=== PATIENT | male | born 1955 | race Caucasian/White ===

== ENCOUNTER 2019-08-04 17:48 | Observation (INO) | payer OTHER ==
[~2019-08-04 17:48] MED LIST: Iopamidol-370 76% 500 ML 1 ML ONE
[2019-08-04] MEDS ORDERED: Ondansetron PF 4 MG/2 ML Vial ONE (18:11)
[2019-08-04] MEDS ORDERED: Morphine 4 MG/ML VIAL ONE ×2 (18:11→19:18)
[2019-08-04 18:34] LABS: #Lymphocytes 0.8 thou/uL (1.20-3.40); #Monocytes 0.5 thou/uL (0.11-0.59); #Neutrophils 5.6 thou/uL (1.40-6.50); %Basophils 0.1 % (0.0-1.0); %Eosinophils 0.5 % (0.0-10.0); %Lymphocytes 11.4 % (21.0-51.0); %Monocytes 7.5 % (0.0-10.0); %Neutrophils 80.4 % (42.0-75.0); Hemoglobin 14.7 g/dL (14.0-18.0); Mean Corpuscular HGB CONC 33.5 g/dL (32.0-36.0); Mean Corpuscular Hemoglobin 32.1 pg (27.0-31.0); Mean Corpuscular Volume 95.6 fL (78.0-98.0); Mean Platelet Volume 6.1 fL (7.4-10.4); Platelet Count 234 thou/uL (130-400); RBC Distribution Width 11.7 % (11.5-14.5); Red Blood Cell (RBC) Count 4.59 mill/uL (4.70-6.10)
[2019-08-04 18:56] LABS: ALT (SGPT) 18 U/L (8-55); AST (SGOT) 17 U/L (5-34); Alkaline Phosphatase 85 U/L (40-110); Anion Gap 17 mmol/L (10-20); BUN (Urea Nitrogen) 14 mg/dL (8.4-25.7); Bilirubin, Total 1.8 mg/dL (0.2-1.2); Calc. Creatinine Clearance 0 mL/min (70-130); Calcium 8.9 mg/dL (7.8-10.44); Carbon Dioxide 20 mmol/L (23-31); Chloride 104 mmol/L (98-107); Estimated GFR-MDRD 70; Globulin 3.1 g/dL (2.4-3.5); Glucose 151 mg/dL (80-115); Lipase 7 U/L (8-78); Potassium 4.1 mmol/L (3.5-5.1); Protein, Total 7.1 g/dL (5.8-8.1); Sodium 137 mmol/L (136-145)
--- NOTE | 2019-08-04 19:11 | RAD ---
CHEST ONE VIEW: 08/04/19 HISTORY: Epigastric pain. COMPARISON: None. FINDINGS: Lungs are hypoinflated with vascular crowding and scattered atelectasis. Heart size is enlarged. No p neumothorax. No effusion. IMPRESSION: Cardiomegaly and poor lung inspiratory effort. POS: HOME
--- NOTE | 2019-08-04 19:16 | ULT ---
Right upper quadrant ultrasound: 08/04/2019 COMPARISON: None HISTORY: Epigastric pain TECHNIQUE: Multiplanar grayscale sonographic imaging of the right upper quadrant obtained. FINDINGS: Pancreas is poorly assessed secondary to body habitus and bowel gas. Evaluation of the hepa tic parenchyma is limited as well, grossly unremarkable. The gallbladder wall is thickened, measuring approximately 4 mm. Right kidney measures 14 cm in crani ocaudal dimension and demonstrates no stone, hydronephrosis, or mass lesion. The common bile duct measures 1-2 mm, within normal limits. Small echogenic foci within the gallbladder suggest stones in the region of the gallbladder neck. The high school computer science teacher reports that the patient was medicated prior to the examination and thus, the sonographic Giron's sign could not be adequately assessed. IMPRESSION: Thickened gallbladder wall with stones within the region of the gallbladder neck suspicio us for acute cholecystitis in the proper clinical setting. If further imaging assessment is clinically warranted, hepatobiliary scan may be beneficial.
[2019-08-04] MEDS ORDERED: Piperacillin/Tazobactam 4.5 GM VIAL ONE (19:18)
--- NOTE | 2019-08-04 20:20 | CT ---
CT of the abdomen and pelvis: 08/04/2019 COMPARISON: None HISTORY: Epigastric pain, evidence of acute cholecystitis noted on recent right upper quadrant ultras ound TECHNIQUE: Axial CT imaging obtained at 5 mm intervals from the lung bases through the pubic symphysi s with IV contrast. Coronal and sagittal reformatted imaging obtained. FINDINGS: The visualized lung bases are unremarkable. No free intraperitoneal air. The liver, spleen, and pancreas demonstrate no acute findings. There is trace perihepatic and perispl enic free fluid. There is gallbladder wall thickening and pericholecystic fluid/stranding, evidence of acute cholecystitis. Tiny bilateral renal hypodensities are noted. There is a fat-containing left inguinal hernia. Limited assessment of the bowel without oral contrast media demonstrates no evidence for inflammatory change or obstruction. The appendix appears unremarkable. There is diastasis of the anterior abdominal wall musculature. There is a small fat-containing umbilical hernia. The vascular structures appear patent. There is a circumaortic left renal vein. No abdominal or pelvi c lymphadenopathy is noted. There appears to be an old fracture of the left iliac wing. No acute osseous abnormality noted. Multi level lower lumbar spine facet hypertrophy. IMPRESSION: Evidence of acute cholecystitis. Additional findings as detailed above.
[2019-08-04] MEDS ORDERED: Morphine 2 MG/ML SYRINGE ONE (21:28)
[2019-08-04 21:31] LABS: Lactic Acid 1.5 mmol/L (0.5-2.2)
[2019-08-04] MEDS ORDERED: Morphine 2 MG/ML SYRINGE SLOW IVP PRN (23:48)
[2019-08-05 00:05] VITALS: BMI 33.1
[2019-08-05] MEDS: Sodium Chloride 0.9% 1,000 ML IV SCH ×3 (00:21→21:09)
[2019-08-05] MEDS: Acetaminophen 1,000 MG in Premix Bag 1 BAG IVPB PRN ×2 (00:21→05:51)
[2019-08-05] MEDS: Piperacillin/Tazobactam 3.375 GM in Sodium Chloride 0.9% 100 ML IVPB SCH ×3 (02:41→21:02)
[2019-08-05] MEDS ORDERED: Bupivacaine 0.25% HCL 30 ML VIAL ONE (10:16)
[2019-08-05] MEDS ORDERED: Bacitracin Zinc Ointment 30 gm TUBE ONE (10:16)
--- NOTE | 2019-08-05 10:21 | HP ---
CHIEF COMPLAINT: Upper abdominal pain. HISTORY OF PRESENT ILLNESS: This is a 63-year-old male, who presented last night with severe epigastric pain, described as sharp at 8/10, associated with nausea and vomiting. No change in stools. He has never had this pain before. He specifically denies history of gallstones, jaundice, or pancreatitis. Ultrasound revealed gallstones. Due to the significance of his epigastric pain, he had CT scan, which revealed cholecystitis as well. PAST MEDICAL HISTORY: Includes; 1. Hypertension. 2. GERD. PAST SURGICAL HISTORY: He denies. MEDICATIONS: Medicines taken daily include; 1. Aspirin. 2. Ramipril. 3. Omeprazole. 4. Meloxicam. ALLERGIES: NO KNOWN DRUG ALLERGIES. SOCIAL HISTORY: No smoking, alcohol, or other drugs. REVIEW OF SYSTEMS: Ten-system review of systems is otherwise negative unless described above. PHYSICAL EXAMINATION: VITAL SIGNS: Blood pressure 105/70, pulse 74, respirations 16. He is afebrile. HEENT: Sclerae anicteric. Oropharynx clear. NECK: No lymphadenopathy. CHEST: Clear. HEART: Regular rate and rhythm. ABDOMEN: Soft, tender in the right upper abdomen and epigastric area with localized guarding without rebound. No abdominal or inguinal hernias. EXTREMITIES: No ischemia or edema to extremities. LABORATORY DATA: White blood cell count is 7, hemoglobin 14, platelets are 234. Sodium 137, potassium 4.1, creatinine 1.07, bilirubin is 1.8. LFTs otherwise normal. Lipase normal. DIAGNOSTIC DATA: Ultrasound and CT scan as above showing cholecystitis, normal common bile duct. ASSESSMENT: 1. Acute cholecystitis. 2. Hypertension. PLAN: Laparoscopic cholecystectomy with intraoperative cholangiogram. Risks, benefits, and alternatives were discussed. He gives consent. We will do this today. Job ID: [id number]
[2019-08-05] MEDS ORDERED: Ondansetron PF 4 MG/2 ML Vial ONE (10:26)
[2019-08-05] MEDS ORDERED: PROPOFOL 200 MG/20 ML VIAL ONE (10:26)
[2019-08-05] MEDS ORDERED: Lidocaine 1% PF 5 ML VIAL ONE (10:26)
[2019-08-05] MEDS ORDERED: Dexamethasone 20 MG/5 ML VIAL ONE (10:26)
[2019-08-05] MEDS ORDERED: Rocuronium Bromide 10 MG/ML (10ML VIAL) ONE (10:26)
[2019-08-05] MEDS ORDERED: ePHEDrine/0.9% NaCl/PF SYRINGE 50 mg/10 ml ONE (10:26)
[2019-08-05] MEDS ORDERED: Fentanyl 100 MCG/2 ML VIAL ONE (13:04)
[2019-08-05] MEDS ORDERED: Iothalamate Meglumine 60% 50 ML VIAL FS ONE (13:09)
[2019-08-05] MEDS ORDERED: Bupivacaine PF 0.5% 30 ML VIAL ONE (13:09)
[2019-08-05] MEDS ORDERED: Sodium Chloride 0.9% 100 ML ONE (13:49)
[2019-08-05] MEDS ORDERED: Piperacillin/Tazobactam 3.375 GM VIAL ONE (13:49)
[2019-08-05] MEDS ORDERED: Promethazine HCl 25 MG/ML VIAL SLOW IVP PRN ×2 (14:33→15:15)
[2019-08-05] MEDS ORDERED: Ondansetron HCl/PF 4 MG/2 ML Vial IVP PRN ×2 (14:33→15:15)
[2019-08-05] MEDS ORDERED: Promethazine HCl 25 MG/ML VIAL IM PRN ×3 (14:33→20:39)
--- NOTE | 2019-08-05 15:00 | RAD ---
XR Cholangiogram in Surgery History: Abdominal pain. Comparison: CT examination prior day Findings: Intraoperative angiogram was performed with cannulation of the cystic duct. No choledocholi thiasis is appreciated. Impression: No evidence for choledocholithiasis.
[2019-08-05] MEDS ORDERED: hydrALAZINE 20 MG/ML VIAL SLOW IVP PRN (20:39)
[2019-08-05] MEDS ORDERED: Dextrose 5% in Water 1,000 ML IV PRN (20:39)
[2019-08-05] MEDS ORDERED: Ondansetron PF 4 MG/2 ML Vial IVP PRN (20:39)
[2019-08-05] MEDS ORDERED: Morphine 4 MG/ML VIAL SLOW IVP PRN (20:39)
[2019-08-05] MEDS ORDERED: Calcium Carbonate 500 MG ChewTAB PO PRN (20:39)
[2019-08-05] MEDS ORDERED: Morphine 2 MG/ML SYRINGE SLOW IVP PRN (20:39)
[2019-08-05] MEDS ORDERED: Dextrose 50% Abboject 50 ML SYRINGE SLOW IVP PRN (20:39)
[2019-08-05] MEDS ORDERED: Mag-Al 1200 mg/1200 mg/30 ML UDCUP PO PRN (20:39)
[2019-08-05] MEDS ORDERED: HYDROcodone/Acetaminophen 7.5/325 mg Tablet PO PRN ×2 (20:39)
[2019-08-05] MEDS: Famotidine 20 MG TAB PO SCH (21:02)
[2019-08-05] MEDS: Famotidine/PF 20 mg/2ml Vial SLOW IVP SCH (21:02)
[2019-08-06] MEDS: Sodium Chloride 0.9% 1,000 ML IV SCH ×2 (01:20→13:00)
[2019-08-06] MEDS: Piperacillin/Tazobactam 3.375 GM in Sodium Chloride 0.9% 100 ML IVPB SCH ×2 (03:11→08:04)
[2019-08-06 06:42] LABS: #Lymphocytes 0.7 thou/uL (1.20-3.40); #Monocytes 0.5 thou/uL (0.11-0.59); #Neutrophils 6.1 thou/uL (1.40-6.50); %Basophils 0.2 % (0.0-1.0); %Eosinophils 0.1 % (0.0-10.0); %Lymphocytes 9.2 % (21.0-51.0); %Monocytes 7.3 % (0.0-10.0); %Neutrophils 83.1 % (42.0-75.0); Hemoglobin 11.8 g/dL (14.0-18.0); Mean Corpuscular Hemoglobin 32.3 pg (27.0-31.0); Mean Corpuscular Volume 95.2 fL (78.0-98.0); Mean Platelet Volume 6.2 fL (7.4-10.4); Platelet Count 206 thou/uL (130-400); RBC Distribution Width 11.6 % (11.5-14.5); Red Blood Cell (RBC) Count 3.64 mill/uL (4.70-6.10); White Blood Cell (WBC) Count 7.3 thou/uL (4.8-10.8)
[2019-08-06 07:09] LABS: ALT (SGPT) 23 U/L (8-55); AST (SGOT) 31 U/L (5-34); Albumin 2.9 g/dL (3.4-4.8); Alkaline Phosphatase 71 U/L (40-110); Anion Gap 10 mmol/L (10-20); BUN (Urea Nitrogen) 12 mg/dL (8.4-25.7); Bilirubin, Total 0.5 mg/dL (0.2-1.2); Calc. Creatinine Clearance 157 mL/min (70-130); Calcium 8.4 mg/dL (7.8-10.44); Carbon Dioxide 21 mmol/L (23-31); Chloride 108 mmol/L (98-107); Estimated GFR-MDRD Greater than 90; Globulin 3.1 g/dL (2.4-3.5); Glucose 134 mg/dL (80-115); Potassium 4.1 mmol/L (3.5-5.1); Sodium 135 mmol/L (136-145)
[2019-08-06 07:50] VITALS: TEMP 97.9
[2019-08-06] MEDS: Famotidine 20 MG TAB PO SCH (08:04)
[2019-08-06] MEDS: Famotidine/PF 20 mg/2ml Vial SLOW IVP SCH (08:09)
[2019-08-06] MEDS ORDERED: Ramipril 5 MG CAP PO SCH (09:00)
--- NOTE | 2019-08-06 09:23 | PDOC.GSPN ---
Surgery Progress Note: Subj - Subjective Patient reports: no new complaints, feels better, positive flatus, pain well controlled (Reports 3-12/03 pain with movement at incision sites primarily), voiding w/o difficulty, tolerating a regular diet Narrative: Pt is post-op day 1 s/p cholecystectomy with intraoperative cholangiogram. GB was found to be perforated, and was removed, with a drain placed and antibiotics started prophylactically. Pt is doing well today, and has been up and ambulating around his room. He feels much better overall, and family notes he looks significantly improved. He has had a slight return of his appetite, and has tolerated a regular diet since last night. Surgery Progress Note: Obj - Vital signs Vital signs: Vital Signs - Most Recent Temp Pulse Resp BP Pulse Ox 97.9 F 73 18 123/82 94 L 08/06/19 07:49 08/06/19 07:49 08/06/19 07:49 08/06/19 08:04 08/06/19 07:49 - Physical Exam General: no distress Neck: trachea midline Cardiovascular: regular rate and rhythm Respiratory: clear to auscultation, normal expansion, normal respiratory effort , breath sounds present Abdomen: soft, nondistended, positive bowel sounds, appropriately tender Wound: dressing clean,dry,intact, healing well, drainage (draining serosanguineous fluid) Surgery Progress Note: Results - Labs Result Diagrams: 08/06/19 05:55 08/06/19 05:55 Lab results: Laboratory Results - last 24 hr 08/06/19 08/06/19 05:55 05:55 WBC 7.3 RBC 3.64 L Hgb 11.8 L Hct 34.6 L MCV 95.2 MCH 32.3 H MCHC 34.0 RDW 11.6 Plt Count 206 MPV 6.2 L Neutrophils % 83.1 H Lymphocytes % 9.2 L Monocytes % 7.3 Eosinophils % 0.1 Basophils % 0.2 Neutrophils # 6.1 Lymphocytes # 0.7 L Monocytes # 0.5 Eosinophils # 0.0 Basophils # 0.0 Sodium 135 L Potassium 4.1 Chloride 108 H Carbon Dioxide 21 L Anion Gap 10 BUN 12 Creatinine 0.83 Estimated GFR (MDRD) Greater than 90 Glucose 134 H Calcium 8.4 Total Bilirubin 0.5 AST 31 ALT 23 Alkaline Phosphatase 71 Serum Total Protein 6.0 Albumin 2.9 L Globulin 3.1 Albumin/Globulin Ratio 0.9 L Surgery Progress Note: A/P - Plan Plan: Pt has improved clinically, with well controlled pain levels and no difficulty voiding or ambulating. He is passing flatus, and is tolerating a regular diet well. Vitals are stable, and patient has remained afebrile with normal WBC count. Plan: -Continue regular diet -OOB/Ambulate -Continue Zosyn antibiotics prophylactically -Plan to keep drain in for the next 3-4 days Addendum - Physician - Physician Attestation Date/Time: 08/06/19 1027 I personally performed or re-performed the physical examination and medical decision making. I have verified all student documentation or findings, including history, physical exam and/or medical decision making. DC NOTE Dx: acute cholecystitis condition stable F/U saturday for drain removal Pacheco/Nazanin to [facility] in [place]
[2019-08-06 13:25] VITALS: BP 132/89
--- NOTE | 2019-08-07 14:23 | DIS ---
DATE OF ADMISSION: 08/04/2019 DATE OF DISCHARGE: 08/06/2019 ADMITTING DIAGNOSIS: Acute cholecystitis. DISCHARGE DIAGNOSIS: Acute cholecystitis. PROCEDURES: Laparoscopic cholecystectomy by Dr. Mccord without complication. CONDITION ON DISCHARGE: Improved. STAFF: Rolo Mccord MD HOSPITAL COURSE: Postop day 1, the patient is doing well. His pain is controlled. He is discharged home. He will follow up with me in the office in one week for drain removal. Job ID: [id number]
--- NOTE | 2019-08-07 14:23 | OP ---
DATE OF PROCEDURE: 08/05/2019 PREOPERATIVE DIAGNOSIS: Acute cholecystitis. POSTOPERATIVE DIAGNOSIS: Acute cholecystitis. PROCEDURE PERFORMED: Laparoscopic cholecystectomy with intraoperative cholangiogram. ANESTHESIA: General. ESTIMATED BLOOD LOSS: Minimal. COMPLICATIONS: None. SPECIMEN: Gallbladder. FINDINGS: Significant cholecystitis. DESCRIPTION OF PROCEDURE: The patient was taken to the operating room and laid supine on the operating room table. After general anesthetic was obtained, the abdomen was shaved, prepped, and draped in a sterile fashion. A curved incision was made below the umbilicus, cautery dissected down to and score the fascia. Abdominal cavity entered bluntly using a Cecile clamp. Holding stitch of PDS was placed on each side of the fascia. Lawrence trocar was placed. High-flow pneumoperitoneum was obtained. Upper midline 5-mm port and 2 right upper quadrant 5-mmm ports were placed under direct visualization. The gallbladder was retracted from the gallbladder fossa. The peritoneum was opened anteriorly and posteriorly. The critical view of triangle was seen, showing only the cystic duct and cystic artery branching medial to lateral. There were no other branching structures. A clip was placed on the cystic duct. A small ductotomy was made just proximal to that. A cholangiocatheter was brought in through a separate stab incision, placed in the cystic duct and a cholangiogram was performed, which showed good contrast flow into the duodenum without obstruction. Cholangiocatheter was removed. Two clips were placed proximally on the cystic duct and one distally, cut using laparoscopic scissors. Cystic artery was taken in the same way. The gallbladder was retracted from the gallbladder fossa and dissected out using cautery. There was significant localized inflammatory change. The gallbladder was placed in EndoCatch bag and brought out through the Lawrence. Due to the significant inflammatory nature, a 19 round drain was brought out through the right upper quadrant incision, left in the liver bed. The right upper quadrant was irrigated using sterile solution. There was no ongoing bleeding. All port sites were infiltrated using local anesthetic. All ports were removed under camera visualization and pneumoperitoneum was let down. PDS was used to close the fascial defect below the umbilicus. All incisions were irrigated and closed using 4-0 Monocryl and Dermabond. The patient was sent to Recovery in stable condition. All instrument counts, needle counts, and lap counts were correct. Job ID: [id number]
== END 2019-08-06 13:48 | disposition home or self-care (01) ==
LOC: ERS 17:48 → SURG B 21:04
PROVIDERS: ADMIT Surgery; ATTEND Surgery
PROC: 0FT44ZZ Resection of Gallbladder, Percutaneous Endoscopic Approach (ICD-10-PCS; principal; 2019-08-05)
PROC: BF101ZZ Fluoroscopy of Bile Ducts using Low Osmolar Contrast (ICD-10-PCS; 2019-08-05)
DX: K81.2 Acute cholecystitis with chronic cholecystitis (principal); K82.A2 Perforation of gallbladder in cholecystitis; I10 Essential (primary) hypertension; K21.9 Gastro-esophageal reflux disease without esophagitis; Z79.82 Long term (current) use of aspirin; Z79.899 Other long term (current) drug therapy
CPT/HCPCS: 36415; 47532; 71045; 74177; 76705; 80053; 83605; 83690; 83880; 84484; 85025; 88304; 96361; 96365; 96366; 96375; 96376; G0378; J0131; J1100; J2001; J2270; J2405; J2543; J2704; J3010; J3490; Q9967; S0020; S0028